=== PATIENT | female | born 1985 | race Caucasian/White ===

== ENCOUNTER 2021-02-26 23:24 | Emergency (ER) | payer OTHER ==
[2021-02-27 03:00] LABS: RED BLOOD COUNT 4.25 M/UL (4.00-5.10); WHITE BLOOD COUNT 12.8 K/UL (4.5-11.0)
[2021-02-27 03:14] LABS: BUN/CREATININE RATIO 15 (0-10)
[2021-02-27] MEDS ORDERED: ANTIVERT 12.512.5 MG PO (05:06)
[2021-02-27] MEDS ORDERED: ZOFRAN4 MG PO (05:09)
== END 2021-02-27 05:34 | disposition home or self-care (01) ==
LOC: ER1 23:24
PROVIDERS: Physician Assistant Medical
DX: R42 Dizziness and giddiness (principal); R11.2 Nausea with vomiting, unspecified; F17.210 Nicotine dependence, cigarettes, uncomplicated; Z90.49 Acquired absence of other specified parts of digestive tract
CPT/HCPCS: 71045; 80053; 81001; 82550; 82553; 83874; 84484; 84703; 85025; 93005; 99284